=== PATIENT | female | born 1960 | race Two or more races ===

== ENCOUNTER 2019-08-17 13:53 | Outpatient (CLI) | payer MEDICAID ==
[~2019-08-17] VITALS: Ht 157.5 cm; Wt 101.6 kg
[2019-08-17 14:44] VITALS: BP 137/75
[2019-08-17] MEDS ORDERED: PRAVASTATIN SOD20 M1 ORAL (14:44)
[2019-08-17] MEDS ORDERED: AMLODIPINE BESY10 MG ORAL (14:44)
[2019-08-17] MEDS ORDERED: FAMOTIDINE20 MG ORAL (14:44)
--- NOTE | 2019-08-17 22:00 | Consultation ---
DATE OF CONSULTATION: 08/17/2019 CHIEF COMPLAINT: Referral for screening colonoscopy. Positive for stool OB. PAST MEDICAL HISTORY: 1. Hypertension. 2. Hypercholesterolemia. 3. . 4. GERD. 5. Cervical in situ. 6. Obesity. PAST SURGICAL HISTORY: 1. x2. 2. Ventral hernia repair. MEDICATIONS: Please see medication reconciliation list. FAMILY HISTORY: No family history of GI malignancies. SOCIAL HISTORY: The patient denies any alcohol, but smokes occasionally. No IV drug abuse. ALLERGIES: No known allergies. REVIEW OF SYSTEMS: Positive for mild constipation, occasional rectal bleeding. PHYSICAL EXAMINATION: VITAL SIGNS: Temperature 97.8, blood pressure 137/75, pulse is 86, respirations 20. HEENT: Normocephalic and atraumatic. Sclerae anicteric. NECK: Supple. No evidence of obvious lymphadenopathy. CARDIOVASCULAR: Regular rate and rhythm. Plus S1-S2. LUNGS: Decreased breath sounds bilaterally based on the supine exam. ABDOMEN: Soft and nontender. No rebound. No guarding. No peritoneal sign. EXTREMITIES: No cyanosis. No clubbing. No edema. ASSESSMENT AND PLAN: This is a 59-year-old female with stool OB positive, needs endoscopy and colonoscopy for evaluation of the GI bleed. The last colonoscopy over 10 years ago. The patient was given instruction for both procedures. The prep was explained to her, pending scheduling when authorization is obtained. Gil Salazar M.D. DR: Juwan JOB#: [id number] CC:
== END 2019-08-17 16:23 | disposition home or self-care (01) ==
LOC: PAN 13:53
DX: K59.00 Constipation, unspecified (principal); K62.5 Hemorrhage of anus and rectum; E78.00 Pure hypercholesterolemia, unspecified; I10 Essential (primary) hypertension; K21.9 Gastro-esophageal reflux disease without esophagitis
CPT/HCPCS: G0463

== ENCOUNTER → 2019-12-14 | Outpatient (CLI) | payer MEDICAID ==
[~2019-12-14] MED LIST: AMLODIPINE BESY10 MG ORAL; ANXIETY MED; BP MED; CREON DR 36,001 EACH PO; FAMOTIDINE20 MG ORAL; PRAVASTATIN SOD20 M1 ORAL; PROTONIX40 MG ORAL; TRAMADOL HCL50 MG ORAL; XANAX0.5 MG ORAL
[2019-12-14 16:08] VITALS: BP 128/72
--- NOTE | 2019-12-14 17:00 | Progress Note ---
DATE: 12/14/2019 SUBJECTIVE: The patient had an upper endoscopy and colonoscopy, is here for a followup. Endoscopy showed evidence of H. pylori-negative gastritis. Colonoscopy did not show any new pathology. PHYSICAL EXAMINATION: VITAL SIGNS: Temperature 97.8, blood pressure is 120/72, pulse is 90, respirations 20. HEENT: Normocephalic, atraumatic. Sclerae anicteric. NECK: Supple. No evidence of obvious adenopathy. CARDIOVASCULAR: Regular rate and rhythm. Plus S1, S2. LUNGS: Clear to auscultation bilaterally. ABDOMEN: Positive bowel sounds. Soft and nontender. No rebound. No guarding. No peritoneal sign. EXTREMITIES: No cyanosis. No clubbing. No edema. ASSESSMENT AND PLAN: 1. H. pylori-negative gastritis. 2. A 2 cm hiatal hernia. 3. Internal hemorrhoids. RECOMMENDATION: Treat for hemorrhoids if it becomes symptomatic. Meanwhile, start the patient on PPI daily given gastritis and reflux symptoms. Patient to come back in the office in 3 months for a followup. Gil Salazar M.D. DR: JIMMY JOB#: [id number] CC:
== END | disposition home or self-care (01) ==
LOC: PAN 12:36
DX: K29.70 Gastritis, unspecified, without bleeding (principal); K44.9 Diaphragmatic hernia without obstruction or gangrene; K64.8 Other hemorrhoids